=== PATIENT | male | born 1970 | race Caucasian/White ===

== ENCOUNTER 2016-12-10 03:16 | Emergency (ER) | payer OTHER ==
[~2016-12-10] VITALS: Ht 185.4 cm; Wt 82.6 kg
[~2016-12-10 03:16] MED LIST: GABA300S PO; PROP40TA PO; QUET100T PO; QUET400T4 PO; TRAZ100T15 PO
[2016-12-10 03:17] VITALS: BP 138/76
== END 2016-12-10 03:31 | disposition left against medical advice (07) ==
LOC: ED 03:25
DX: M54.9 Dorsalgia, unspecified (principal); Z53.21 Procedure and treatment not carried out due to patient leaving prior to being seen by health care provider

== ENCOUNTER 2017-02-23 13:21 | Observation (INO) | payer OTHER ==
[~2017-02-23] VITALS: Ht 180.3 cm; Wt 79.3 kg
[2017-02-23 13:51] LABS: HEMATOCRIT 39.9 % (39.2-51.8); HEMOGLOBIN 13.4 g/dL (13.7-18.0); WHITE BLOOD COUNT 5.8 x10^3/uL (3.4-10)
[2017-02-23 14:02] LABS: ASPARTATE AMINO TRANSFERASE 14 U/L (15-37); BLOOD UREA NITROGEN 9 mg/dL (7-18)
[2017-02-23 14:06] LABS: ACETAMINOPHEN < 2 mcg/mL (10-30)
[2017-02-23 14:07] LABS: DAU SCREEN DISCLAIMER
[2017-02-23] MEDS ORDERED: TRAZ100T15 PO (14:40)
[2017-02-23] MEDS ORDERED: QUET300T5 PO (14:40)
[2017-02-23] MEDS ORDERED: POLYETHYLENE GLYCOL 17 GM PACKET PO PRN (16:30)
[2017-02-23] MEDS ORDERED: DOCUSATE 100 MG CAPSULE PO PRN (16:30)
[2017-02-23] MEDS ORDERED: HALOPERIDOL 5 MG/ML IM PRN (16:30)
[2017-02-23] MEDS ORDERED: ZIPRASIDONE 20 MG INJ IM PRN (16:30)
[2017-02-23] MEDS ORDERED: ACETAMINOPHEN 325 MG TABLET PO PRN (16:30)
[2017-02-23] MEDS ORDERED: ONDANSETRON ODT 4 MG PO PRN (16:30)
[2017-02-23] MEDS ORDERED: HALOPERIDOL 5 MG TABLET PO PRN (16:30)
[2017-02-23 18:00] VITALS: BP 128/82
[2017-02-23 19:24] VITALS: BP 110/70
[2017-02-23] MEDS: TRAZODONE 100MG TABLET PO SCH (20:22)
[2017-02-23] MEDS: PROPRANOLOL 20 MG TABLET PO SCH (20:23)
[2017-02-23] MEDS: NICOTINE 21 MG/24 HR PATCH.TD24 TD SCH (20:26)
[2017-02-23] MEDS: QUETIAPINE 200 MG TABLET PO SCH (20:26)
[2017-02-24 08:00] VITALS: BP 106/69
[2017-02-24 19:20] VITALS: BP 119/75
[2017-02-24] MEDS: QUETIAPINE 200 MG TABLET PO SCH (20:07)
[2017-02-24] MEDS: PROPRANOLOL 20 MG TABLET PO SCH (20:07)
[2017-02-24] MEDS: NICOTINE 21 MG/24 HR PATCH.TD24 TD SCH (20:08)
[2017-02-24] MEDS: TRAZODONE 100MG TABLET PO SCH (20:08)
[2017-02-25 08:00] VITALS: BP 116/72
[2017-02-25] MEDS: QUETIAPINE 200 MG TABLET PO SCH (20:05)
[2017-02-25] MEDS: TRAZODONE 100MG TABLET PO SCH (20:05)
[2017-02-25] MEDS: NICOTINE 21 MG/24 HR PATCH.TD24 TD SCH (20:06)
[2017-02-25] MEDS: PROPRANOLOL 20 MG TABLET PO SCH (20:06)
[2017-02-25 20:09] VITALS: BP 125/86
[2017-02-26 07:32] VITALS: BP 124/75
[2017-02-26] MEDS: QUETIAPINE 100MG TABLET PO SCH (08:20)
[2017-02-26] MEDS: FLUOXETINE 20 MG CAPSULE PO SCH (08:20)
[2017-02-26 19:24] VITALS: BP 102/64
[2017-02-26] MEDS: QUETIAPINE 200 MG TABLET PO SCH (20:29)
[2017-02-26] MEDS: TRAZODONE 100MG TABLET PO SCH (20:30)
[2017-02-26] MEDS: PROPRANOLOL 20 MG TABLET PO SCH (20:30)
[2017-02-26] MEDS: NICOTINE 21 MG/24 HR PATCH.TD24 TD SCH (20:31)
[2017-02-27 08:00] VITALS: BP 122/74
[2017-02-27] MEDS: FLUOXETINE 20 MG CAPSULE PO SCH (09:18)
[2017-02-27] MEDS: QUETIAPINE 100MG TABLET PO SCH (09:25)
== END 2017-02-27 12:00 | disposition left against medical advice (07) ==
LOC: ED 14:06 → EDIP 14:33 → INTOOBSV 14:33 → 3E 17:42
PROVIDERS: ADMIT Hospitalist; ATTEND Hospitalist
DX: R45.851 Suicidal ideations (principal); E87.6 Hypokalemia; E43 Unspecified severe protein-calorie malnutrition; F17.210 Nicotine dependence, cigarettes, uncomplicated; F20.9 Schizophrenia, unspecified; F31.9 Bipolar disorder, unspecified
CPT/HCPCS: 36415; 80053; 80307; 80329; 85025; 99285; G0378; G0479; G0480

== ENCOUNTER 2020-01-06 14:07 | Emergency (ER) | payer OTHER ==
[~2020-01-06] VITALS: Ht 180.3 cm; Wt 71.0 kg
[~2020-01-06 14:07] MED LIST changes: +QUET300T5 PO; +TRAZ-175 PO; -TRAZ100T15 PO
[2020-01-06 14:16] VITALS: BP 121/70
--- NOTE | 2020-01-06 14:42 | NUR ---
PT AMBULATORY TO ROOM 1 W/ C/O RAPID RACING THOUGHTS. MADE STATEMENTS IN TRIAGE. "MUSIC AGAINST AIDEN" "US GOVT. 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 "I NEED TO CHECK INTO THE ER AND GET AWAY FROM ALL THE FUCKING BULLSHIT IN MONSE". PT COOPERATIVE BUT RESTLESS IN ROOM. STATES PLAN IS TO POISON THE WATER AND KILL EVERYONE. DENIES PERSONAL SI. PERSONAL BELONGINGS BAG (1 OF 1) PLACED IN SECURE LOCKER. SITTER PLACED AT BEDSIDE. ROOM SECURED. ERP DR. PATEL AT BEDSIDE FOR EVAL.
[2020-01-06] MEDS ORDERED: LORazepam 1MG TABLET ONE (14:49)
[2020-01-06] MEDS ORDERED: LORazepam 1MG TABLET PO ONE (15:00)
--- NOTE | 2020-01-06 15:02 | NUR ---
PT PROVIDED W/ SI LUNCH TRAY. GAURANG. SITTER REMAINS AT BEDSIDE. ROOM REMAINS SECURE.
[2020-01-06 15:03] LABS: BASOPHILS # (AUTO) 0.11 x10^3/uL (0-0.1); BASOPHILS % (AUTO) 1 % (0-1); EOSINOPHILS # (AUTO) 0.25 x10^3/uL (0-0.4); EOSINOPHILS % (AUTO) 3 % (1-7); LYMPHOCYTES # (AUTO) 3.51 x10^3/uL (1-3.4); LYMPHOCYTES % (AUTO) 36 % (22-44); MD NO; MEAN CORPUSCULAR HEMOGLOBIN 29.5 pg (27.5-34.5); MEAN CORPUSCULAR HGB CONC 32.6 g/dL (33.2-36.2); MEAN CORPUSCULAR VOLUME 90.6 fL (81-97); MEAN PLATELET VOLUME 6.9 fL (7.4-10.4); MONOCYTES # (AUTO) 0.92 x10^3/uL (0.2-0.8); MONOCYTES % (AUTO) 10 % (2-9); NEUTROPHILS # (AUTO) 4.96 x10^3/uL (1.8-6.8); NEUTROPHILS % (AUTO) 51 % (42-75); PLATELET COUNT 310 x10^3/uL (130-400); RED BLOOD COUNT 4.47 x10^6/uL (4.38-5.82); RED CELL DISTRIBUTION WIDTH 13.9 % (9.4-14.8)
[2020-01-06 15:14] LABS: AMPHETAMINE SCREEN, URINE Negative (Negative); BARBITURATE SCREEN, URINE Negative (Negative); BENZODIAZEPINE SCREEN, URINE Negative (Negative); CANNABINOID SCREEN, URINE Negative (Negative); COCAINE SCREEN, URINE Negative (Negative); METHADONE SCREEN, URINE Negative (Negative); OPIATE SCREEN, URINE Negative (Negative)
[2020-01-06 15:15] LABS: ALBUMIN 3.4 g/dL (3.4-5.0); ANION GAP 6 mmol/L (5-15); CHLORIDE 109 mmol/L (98-107)
[2020-01-06 15:16] LABS: SALICYLATE LEVEL < 1.7 mg/dL (2.8-20.0)
[2020-01-06 15:26] LABS: ALANINE AMINOTRANSFERASE 34 U/L (12-78); ALKALINE PHOSPHATASE 87 U/L (45-117); BILIRUBIN,TOTAL 0.5 mg/dL (0.2-1.0); TOTAL PROTEIN 6.8 g/dL (6.4-8.2)
--- NOTE | 2020-01-06 16:03 | NUR ---
KESHA, PSYCH VICE PRESIDENT PLANNING AT BEDSIDE FOR EVAL.
--- NOTE | 2020-01-06 17:26 | NUR ---
REPORT GIVEN TO HAZEL WHEELER RN AT [facility].
--- NOTE | 2020-01-06 17:32 | NUR ---
PT PROVIDED W/ SI DINNER TRAY. SITTER REMAINS AT BEDSIDE. ROOM REMAINS SECURE.
== END 2020-01-06 19:00 | disposition short-term general hospital (02) ==
LOC: ED 14:54
DX: F20.9 Schizophrenia, unspecified (principal); F15.10 Other stimulant abuse, uncomplicated; R94.31 Abnormal electrocardiogram [ECG] [EKG]
CPT/HCPCS: 36415; 80053; 80307; 84443; 85025; 93005; 99285

== ENCOUNTER 2020-02-24 23:19 | Emergency (ER) | payer SELFPAY ==
[~2020-02-24] VITALS: Ht 182.9 cm; Wt 71.7 kg
[2020-02-24] MEDS ORDERED: LORazepam 1MG TABLET ONE (23:42)
--- NOTE | 2020-02-24 23:46 | NUR ---
PT WITH PRESSURED NON SENSICAL SPEACH DOES REPORT OFF [facility] FOR 2 MO. 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 BELONGINGS REMOVED FROM PT AND PLACED IN LOCKED STORAGE. PT STATES HE DENIES ANY SI/HI AT THIS TIME. PACING AROUND ROOM, NOT MAKING ANY SENSE. ATIVAN PER ORDER, TO HAVE PSYCH CONSULT. [id number]
[2020-02-24 23:50] LABS: BASOPHILS % (AUTO) 1 % (0-1); EOSINOPHILS % (AUTO) 1 % (1-7); LYMPHOCYTES % (AUTO) 37 % (22-44); MEAN CORPUSCULAR HEMOGLOBIN 29.8 pg (27.5-34.5); MEAN CORPUSCULAR HGB CONC 33.4 g/dL (33.2-36.2); MEAN PLATELET VOLUME 6.8 fL (7.4-10.4); MONOCYTES % (AUTO) 11 % (2-9); NEUTROPHILS % (AUTO) 50 % (42-75); PLATELET COUNT 341 x10^3/uL (130-400); RED BLOOD COUNT 4.61 x10^6/uL (4.38-5.82)
--- NOTE | 2020-02-24 23:53 | NUR ---
ROOM SECURED, SITTER OUTSIDE IN LINE OF SITE, PT WAITING FOR PSYCH CONSTULT
[2020-02-24 23:54] LABS: MD NO
[2020-02-25] MEDS ORDERED: LORazepam 1MG TABLET PO ONE
[2020-02-25 00:01] LABS: ALANINE AMINOTRANSFERASE 13 U/L (12-78); ALBUMIN 4.1 g/dL (3.4-5.0); ANION GAP 8 mmol/L (5-15); CALCIUM 9.3 mg/dL (8.5-10.1); CHLORIDE 109 mmol/L (98-107); SALICYLATE LEVEL 1.9 mg/dL (2.8-20.0)
--- NOTE | 2020-02-25 00:03 | NUR ---
ONE BACKPACK UNSEARCHED, 2 BELONGING BAGS WITH SWEATSHIRT, SHOES, TOPS AND HAT TO LOCKED STORAGE. REQUESTED URINE SAMPLE FROM PT, WATER PROVIDED. LABS DRAWN.
[2020-02-25 00:04] LABS: ALKALINE PHOSPHATASE 90 U/L (45-117); BILIRUBIN,TOTAL 0.9 mg/dL (0.2-1.0); CREATININE 0.71 mg/dL (0.7-1.3); TOTAL PROTEIN 7.8 g/dL (6.4-8.2)
--- NOTE | 2020-02-25 00:11 | NUR ---
PT PACING IN ROOM, ENCOURAGED URINE SAMPLE. PT IS REDIRECTABLE.
--- NOTE | 2020-02-25 00:41 | NUR ---
TASK RN: PT RESTING IN [facility] AT THIS TIME WITH SITTER OUTSIDE OF ROOM FOR DIRECT OBSERVATION OF PT. GAURANG. PT INSTRUCTED ON NEED FOR URINE SAMPLE. PT VERBALIZES UNDERSTANDING BUT STATES THAT HE IS UNABLE TO VOID AT THIS TIME.
--- NOTE | 2020-02-25 00:53 | NUR ---
TASK RN: PT PROVIDED WATER PER REQUEST AT THIS TIME.
[2020-02-25 01:24] LABS: AMPHETAMINE SCREEN, URINE Positive (Negative); BARBITURATE SCREEN, URINE Negative (Negative); BENZODIAZEPINE SCREEN, URINE Negative (Negative); CANNABINOID SCREEN, URINE Positive (Negative); COCAINE SCREEN, URINE Negative (Negative); METHADONE SCREEN, URINE Negative (Negative); OPIATE SCREEN, URINE Negative (Negative)
--- NOTE | 2020-02-25 01:38 | NUR ---
pt very sleepy, tele psych attempted however unable to interview due to sedation. psych to reconsult in about 5 hours.
--- NOTE | 2020-02-25 02:54 | NUR ---
Sleeping, RR equal and unlabored. Sitter in line of site, will continue to monitor. Plan: psych eval in am.
--- NOTE | 2020-02-25 04:40 | NUR ---
SLEEPING, RR EQUAL AND UNLABORED. SITTER IN LINE OF SITE. WILL CONTINUE MONITORING.
--- NOTE | 2020-02-25 05:57 | NUR ---
SLEEPING, SITTER IN LINE OF SITE. PLAN IS FOR PT TO HAVE PSYCH RE-EVAL IN AM. TELE PSYCH WAS UNABLE TO INTERVIEW 2ND TO SEDATION.
--- NOTE | 2020-02-25 06:41 | NUR ---
PT AWAKE, UPDATED RE PLAN FOR PSYCH EVAL THIS AM. PT DENIES SI/HI, IS RESPONDING MORE APPROPRIATLY TO QUESTIONS NOW. WILL CONTINUE TO MONITOR.
--- NOTE | 2020-02-25 06:50 | NUR ---
report to [facility]
--- NOTE | 2020-02-25 06:54 | NUR ---
RECEIVED REPORT FROM ANURADHA VERA. PT. RESTING ON GURNEY WITH NO DISTRESS NOTED. URINAL AT BS. REPIRATIONS VISIBLE AND NON-LABORED. ROOM SECURED, SITTER IN GRAFF. PLAN FOR RE-EVAL LATER TODAY.
--- NOTE | 2020-02-25 07:46 | NUR ---
PT. RESTING ON GURNEY WITH EYES CLOSED; SUPINE POSITION. RESPIRATIONS VISIBLE AND NON-LABORED. ROOM REMAINS SECURED. SITTER IN GRAFF.
--- NOTE | 2020-02-25 08:25 | NUR ---
MEAL TRAY PROVIDED TO PT. PT. DENIES OTHER NEEDS AT THIS TIME. NO DISTRESS NOTED. SITTER IN VIEW.
[2020-02-25 08:38] VITALS: BP 127/79
--- NOTE | 2020-02-25 08:39 | NUR ---
PT. ATE 100% OF MEAL TRAY PROVIDED. 2ND MEAL TRAY ORDERED FOR PT. PER REQUEST. VS UPDATED. DENIES OTHER NEEDS.
--- NOTE | 2020-02-25 09:07 | NUR ---
REPORT RECEIVED FROM ANURADHA BAUTISTA. [facility].
--- NOTE | 2020-02-25 12:38 | NUR ---
PT PROVIDED WITH MEAL TRAY
[2020-02-25] MEDS ORDERED: QUETIAPINE 25MG TABLET ONE (12:47)
[2020-02-25] MEDS ORDERED: QUETIAPINE 25MG TABLET PO SCH (13:00)
== END 2020-02-25 13:17 | disposition home or self-care (01) ==
LOC: ED 23:50
DX: R45.851 Suicidal ideations (principal); F15.10 Other stimulant abuse, uncomplicated; F17.210 Nicotine dependence, cigarettes, uncomplicated; Z72.9 Problem related to lifestyle, unspecified
CPT/HCPCS: 36415; 80053; 80307; 85025; 99284; 99406

== ENCOUNTER 2020-07-16 07:42 | Emergency (ER) | payer SELFPAY ==
[~2020-07-16] VITALS: Ht 182.9 cm; Wt 72.6 kg
[2020-07-16 07:45] VITALS: BP 131/81
== END 2020-07-16 09:52 | disposition home or self-care (01) ==
LOC: ED 09:35
DX: N50.812 Left testicular pain (principal); N50.811 Right testicular pain; F20.9 Schizophrenia, unspecified
CPT/HCPCS: 76870; 99284

== ENCOUNTER 2020-10-19 17:56 | Emergency (ER) | payer OTHER ==
[~2020-10-19] VITALS: Ht 185.4 cm; Wt 75.0 kg
--- NOTE | 2020-10-19 18:39 | NUR ---
RN AND EDTA AT BS WITH RING CUTTER
--- NOTE | 2020-10-19 19:00 | NUR ---
REPORT FROM DIOMEDES RN
--- NOTE | 2020-10-19 20:02 | NUR ---
PT RESTING IN BED. TECH IS CURRENTLY ATTEMTPING TO CUT RING OFF RIGHT RING FINGER. PT HAND CUFFED IN THE FEET AND THE HANDS. TWO [employer] GAURDS ARE OCCOMPANYING PT. ATTACHED TO MONITORS. VSS. NADN \BED IN LOW POSITIN, RAILS ENAGED.
[2020-10-19 20:44] VITALS: BP 146/86
--- NOTE | 2020-10-19 20:47 | NUR ---
[facility] AND PT given discharge instructions and they have confirmed that they understand the instructions. Patient ambulatory with steady gait AND WAS HANDCUFFED . NAD, all questions answered appropriately, denies additional needs at this time. No personal belongings left in room after discharge.
== END 2020-10-19 20:49 | disposition home or self-care (01) ==
LOC: ED 19:44
DX: S60.454A Superficial foreign body of right ring finger, initial encounter (principal); W22.8XXA Striking against or struck by other objects, initial encounter; Y93.89 Activity, other specified; Y92.009 Unspecified place in unspecified non-institutional (private) residence as the place of occurrence of the external cause; Y99.8 Other external cause status
CPT/HCPCS: 99284

== ENCOUNTER 2020-11-22 23:57 | Emergency (ER) | payer SELFPAY ==
[~2020-11-22] VITALS: Ht 185.4 cm; Wt 73.0 kg
--- NOTE | 2020-11-23 00:41 | NUR ---
pt presents to ed with complaints of cardiac problems, but cannot explain what kind of cardiac problems he has. Also patient is complaining of hip pain with every 3rd or 4th step. pt on gunrey, in gown and placed on continuous monitoring.
[2020-11-23 01:45] LABS: BASOPHILS % (AUTO) 1 % (0-1); EOSINOPHILS % (AUTO) 4 % (1-7); LYMPHOCYTES % (AUTO) 36 % (22-44); MEAN CORPUSCULAR HEMOGLOBIN 30.6 pg (27.5-34.5); MEAN CORPUSCULAR HGB CONC 34.2 g/dL (33.2-36.2); MEAN PLATELET VOLUME 7.1 fL (7.4-10.4); MONOCYTES % (AUTO) 9 % (2-9); NEUTROPHILS % (AUTO) 50 % (42-75); PLATELET COUNT 268 x10^3/uL (130-400); RED BLOOD COUNT 4.51 x10^6/uL (4.38-5.82); RED CELL DISTRIBUTION WIDTH 14.2 % (9.4-14.8)
[2020-11-23 01:57] LABS: ALANINE AMINOTRANSFERASE 14 U/L (12-78); ALBUMIN 3.5 g/dL (3.4-5.0); ANION GAP 6 mmol/L (5-15); CALCIUM 8.6 mg/dL (8.5-10.1); CHLORIDE 109 mmol/L (98-107); CREATININE 0.67 mg/dL (0.7-1.3)
[2020-11-23 01:59] LABS: ALKALINE PHOSPHATASE 74 U/L (45-117); BILIRUBIN,TOTAL 0.3 mg/dL (0.2-1.0); TOTAL PROTEIN 6.8 g/dL (6.4-8.2)
[2020-11-23 02:00] VITALS: BP 137/88
--- NOTE | 2020-11-23 02:22 | NUR ---
Patient given discharge instructions and they have confirmed that they understand the instructions. Patient ambulatory with steady gait.
== END 2020-11-23 02:36 | disposition home or self-care (01) ==
LOC: ED 11-23 02:03
DX: R00.2 Palpitations (principal); R94.31 Abnormal electrocardiogram [ECG] [EKG]
CPT/HCPCS: 36415; 80053; 85025; 93005; 99284